=== PATIENT | male | born 1980 | race Two or more races ===

== ENCOUNTER 2023-05-21 08:35 | Emergency (ER) | payer BC, OTHER ==
[~2023-05-21] VITALS: Ht 188 cm; Wt 103.5 kg
[2023-05-21 10:40] VITALS: BP 111/64; PULSE 76; RESP 18; TEMP 98.1; O2SAT 96
[2023-05-21] MEDS ORDERED: LIDOCAINE 5% TOPICAL PATCH TOP ONE (11:15)
[2023-05-21] MEDS ORDERED: KETOROLAC TROMETH 30 MG/ML 1ML VIAL IM ONE (11:15)
[2023-05-21 11:52] LABS: Basophils # (auto) 0 10 ^3/uL (0-0.2); Basophils % (auto) 0.3 % (0.0-2.0); Eosinophils # (auto) 0 10 ^3/uL (0-0.8); Eosinophils % (auto) 0.3 % (0.0-7.0); Hematocrit 45.7 % (41.0-53.0); Hemoglobin 15.6 g/dL (13.5-17.5); Lymphocytes # (auto) 1.6 10 ^3/uL (0.4-5.4); Lymphocytes % (auto) 12.9 % (10.0-50.0); Mean Corpuscular Hemoglobin 29.1 pg (28.0-32.0); Mean Corpuscular Volume 85.4 fL (80.0-100.0); Monocytes % (auto) 8.6 % (0.0-12.0); Neutrophils # (auto) 9.4 10 ^3/uL (1.6-8.6); Neutrophils % (auto) 77.9 % (37.0-80.0); Red Blood Cells 5.35 10^6/uL (4.5-5.90); White Blood Cell 12.1 10^3/uL (4.4-10.8)
[2023-05-21 11:57] LABS: Chloride 101 mmol/L (98-107); Potassium 4.3 mmol/L (3.5-5.1); Sodium 138 mmol/L (136-145)
[2023-05-21 11:58] LABS: Anion Gap 10 (5-15); Calcium 9.7 mg/dL (8.5-10.1); Carbon Dioxide 27 mmol/L (20-30)
[2023-05-21 12:03] LABS: BUN/Creatinine Ratio 17.3 (10.0-20.0); Blood Urea Nitrogen 17 mg/dL (9-23); Glucose 222 mg/dL (74-106)
[2023-05-21] MEDS ORDERED: NAPR-957 PO (12:31)
[2023-05-21] MEDS ORDERED: LIDO5CRE14 EX (12:31)
[2023-05-21] MEDS ORDERED: METH-1181 PO (12:31)
[2023-05-21] MEDS ORDERED: DICL1GEL59 EX (12:31)
== END 2023-05-21 12:48 | disposition home or self-care (01) ==
LOC: ER 08:35
DX: M77.8 Other enthesopathies, not elsewhere classified (principal); Z79.899 Other long term (current) drug therapy
CPT/HCPCS: 36415; 80048; 85025; 96372; 99283; J1885